=== PATIENT | male | born 1975 | race Hispanic/Latino ===

== ENCOUNTER 2021-11-07 13:04 | Outpatient (AMB) | payer MEDICAID, SELFPAY ==
[2021-11-07 13:30] VITALS: BP 126/82; PULSE 79; RESP 18; TEMP 36.7; BMI 30.1
--- NOTE | 2021-11-07 13:30 | URONOTE_ITS ---
Intake Vital Signs 11/07/21 13:30 Height 1.65 m Weight 82.214 kg BMI 30.1 BP 126/82 Blood Pressure Location Right Upper Arm Position Sitting Respiration 18 Pulse 79 Pulse Source Monitor Temp 98.0 F Temp Source Temporal Artery Scan Intake Visit Reasons: Uro Prostate Ultrasound/vaccinated Allergy Allergies No Known Allergies Allergy (Verified 11/07/21 13:31) Home Meds Medication Reconciliation omeprazole 20 mg tablet,delayed release 20 mg PO QDAY 09/11/21 [History Confirmed 11/07/21] loratadine 10 mg tablet 10 mg PO QDAY 11/07/21 [History Confirmed 11/07/21] tamsulosin 0.4 mg capsule 0.4 mg PO QDAY 11/07/21 [History Confirmed 11/07/21] Nurse Note: INES Mcpherson- patient has been educated about urolift procedure. patient advised to continue with tamsulosin medication for now; if symptoms do not improved we will discuss possible urolift surgery. follow up in 4 months Office Procedures Uro Prostate US My Supervising Practitioner for this visit is:: Abdullahi Munoz Prostate US: Yes Informed consent given: Yes Consent signed: Yes Time out staff in room: Yes IMMEDIATELY PRIOR TO START OF PROCEDURE: ALL MEMBERS of the procedural team are in attendance and actively involved together in the TIME-OUT and verified as applies to the patient:: Correct Patient Identity, Correct Site, Consent Signed and Accurate, Team Agrees on Procedure, Patient has completed pre-procedure preparations, Fleet Enema, Review of allergies and potential blood loss, Safety Precautions are in place based on patient history, Correct Patient Positioning, Procedural site marked by appropriate provider, Procedural site marking is visible after prep and draping, Relevant images and results are properly labeled and displayed, Reqd blood products, implants, devices and necessary equip available, Specimen container(s) and lab req(s) are available & labeled properly. and H&P, assessments, and other pertinent documents are available Time out verified: Yes Time out date: 11/07/21 Time out time: 14:10 Uro Level of Care Nursing/Assessment/Reassessment Patient Status: Established Patient Nursing Assessment/Reassessment: Update [facility] data in EMR, Vital Signs and Medication Reconciliation Coordination of Care: Comp Pt/Fam Ed for care and Consent,records obtained Miscellaneous Interventions: Phys Asssit w/procedure Established Patient Point Assignment: 80 Procedure IM Injection: No Transrectal Ultrasound: Yes Urology Prostate Ultrasound PSA Density (ng/cc):: 0.7 Prostate Height (mm):: 3.07 Prostate Width (mm):: 5.39 Prostate Length (mm):: 4.19 Prostate volume (cc):: 36.28 Hypoechogenic areas exist which could represent areas of malignancy: No Hyperdense schos are seen suggestive of calculi in the capsule: Yes Seminal vesicles:: Normal Prostate median lobe:: Absent Bladder exam:: Normal Documentation images were taken: Yes Visit Diagnosis: BPH with urinary obstruction and LUTS on tamsulosin 0.4 mg p.o. daily follow-up appointment in urology office in 6 months or as needed end of dictation thank
== END 2021-11-07 14:23 | disposition home or self-care (01) ==
LOC: HODURO 13:04
PROVIDERS: Visit Provider Urology